=== PATIENT | female | born 1980 | race Hispanic/Latino ===

== ENCOUNTER 2017-03-26 10:49 | Emergency (ER) | payer SELFPAY ==
[2017-03-26] MEDS ORDERED: IBUPROFEN 600 MG TABLET ONE (12:17)
== END 2017-03-26 13:10 | disposition home or self-care (01) ==
LOC: EDH 10:49
DX: S83.095A Other dislocation of left patella, initial encounter (principal); Z72.0 Tobacco use; X58.XXXA Exposure to other specified factors, initial encounter; Y93.89 Activity, other specified; Y92.89 Other specified places as the place of occurrence of the external cause; Y99.8 Other external cause status
CPT/HCPCS: 73562